=== PATIENT | male | born 1960 | race Caucasian/White ===

== ENCOUNTER 2021-09-01 13:33 | Observation (INO) | payer OTHER, SELFPAY ==
[2021-09-01] VITALS (7 sets, daily range): BP systolic 112–139; BP diastolic 84–99; PULSE 90–125; RESP 16–20; TEMP 36–36.6; O2SAT 95–99
--- NOTE | ~2021-09-01 | CT_ITS ---
EXAMINATION: CT cervical spine wo con EXAM DATE: 09/01/2021 13:57 INDICATION: fall, head inj TECHNIQUE: Spiral CT of the cervical spine was performed without contrast. Axial images were reviewe d. Coronal and sagittal reformatted images cervical spine were also reviewed. The dose-length produc t (DLP) for this examination was 500.68 mGy-cm. The exposure was tailored according to patient size (auto mA exposure control), and iterative reconstruction (ASIR) was used as additional dose reduction technique. There is no prior study for comparison. FINDINGS: Congenitally absent left C1 arch. There is no evidence of acute cervical fracture. The odo ntoid process is intact. Pre-dens space is normal. Prevertebral soft tissue is normal. There are n o soft tissue abnormalities identified. There is no disc space widening or traumatic vertebral body subluxation suspected. C5-C6 moderate disc disease, mild to moderate at other cervical levels. Overa ll mild to moderate cervical arthropathy. A detailed level by level evaluation of spondylosis can be added as addendum if requested. IMPRESSION: No acute cervical fracture. Cervical spondylosis. Reviewed, dictated and finalized at location G.
--- NOTE | ~2021-09-01 | CT_ITS ---
EXAMINATION: CT brain wo con DATE: 09/01/2021 13:56 INDICATION: Anticoagulated patient post fall with head injury. TECHNIQUE: Computed tomography (CT) of the head was performed without intravenous contrast. Sagittal and coronal reconstructions were performed. The mA was adjusted according to patient size. Iterative reconstruction technique was employed. The dose-length product was 681.00 mGy-cm. COMPARISON: None FINDINGS: Small occipital scalp contusion. No fracture. No acute intracranial hemorrhage, acute infarction or a bnormal extra axial fluid collection. Ventricles are normal and symmetric. No mass/mass effect. The o rbits, paranasal sinuses and mastoid air cells are normal. IMPRESSION: 1. No fracture or acute intracranial process. Reviewed, dictated and finalized at location A.
--- NOTE | ~2021-09-01 | CT_ITS ---
EXAMINATION: CT thoracic spine wo con EXAM DATE: 09/01/2021 15:24 INDICATION: Fall. TECHNIQUE: Spiral CT thoracic spine wo con was performed without contrast. Axial, coronal and sagit samir images were reviewed. The dose-length product (DLP) for this examination was 1280.01 mGy-cm. Th e exposure was tailored according to patient size (auto mA exposure control), and iterative reconstru ction (ASIR) was used as additional dose reduction technique. Correlation is made to cervical CT veronica ier same date. FINDINGS: There are no acute fractures identified. The vertebral bodies are aligned in the AP dimensi on. Mild thoracic disc disease and facet arthropathy. Mild to moderate mid thoracic neural foraminal stenosis from T7-8 through T9-10. The thoracic central canal is widely patent. Left basilar calcified granuloma. Small left adrenal gland adenoma or hyperplasia. IMPRESSION: No acute thoracic findings. Reviewed, dictated and finalized at location . IMPRESSION: No acute thoracic findings.
--- NOTE | ~2021-09-01 | XR_ITS ---
EXAMINATION: XR chest 1V portable EXAM DATE: 09/01/2021 14:14 INDICATION: Chest pain. TECHNIQUE: Portable AP frontal chest x-ray was obtained. There is no prior study for comparison. FINDINGS: Poor inspiration, low lung volume. Mild cardiomegaly and pulmonary vascular congestion. No confluent consolidation, pneumothorax or pleural effusion suspected. There are no osseous abnormaliti es identified. IMPRESSION: Cardiomegaly, vascular congestion. Reviewed, dictated and finalized at location G.
--- NOTE | 2021-09-01 13:41 | ECG_ITS ---
Measurements Intervals [place] Rate: 99 P: RI: 0 QRS: 16 QRSD: 97 T: 61 QT: 369 QTc: 475 Interpretive Statements ATRIAL FLUTTER/TACHYCARDIA NONSPECIFIC ST SEGMENT ABNORMALITY ABNORMAL ECG NO PREVIOUS ECG AVAILABLE FOR COMPARISON Electronically Signed On 09-01-2021 20:51:34 CDT by David Condon M.D.
[2021-09-01] MEDS: SODIUM CHLORIDE 0.9% IV 1,000 ML 999 ML IV CONT (14:15)
[2021-09-01] MEDS: PROMETHAZINE HCL 25 MG/ML AMPUL 12.5 MG IV PUSH (14:16)
[2021-09-01 14:33] LABS: Basophils Absolute Auto 0.1 K/mm3 (0.0-0.1); Basophils Percent Auto 0.8 % (0.2-1.2); Eosinophils Absolute Auto 0.4 K/mm3 (0-0.3); Eosinophils Percent Auto 4.2 % (0-4.4); Hematocrit 46.2 % (42.0-52.0); Hemoglobin 15.2 g/dL (14.0-18.0); Immature Granulocyte Absolute 0.02 K/mm3 (0.00-0.031); Immature Granulocyte Percent A 0.2 % (0-0.5); Lymphocytes Absolute Auto 3.66 K/mm3 (0.9-3.2); Lymphocytes Percent Auto 39.4 % (18.3-44.2); Mean Corpuscular HGB Conc 32.9 g/dl (32-36); Mean Corpuscular Hemoglobin 30.3 pg (26-34); Mean Corpuscular Volume 92.2 fl (80-100); Mean Platelet Volume 10.8 fl (7.4-10.4); Monocytes Absolute Auto 0.7 K/mm3 (0.1-0.6); Monocytes Percent Auto 7.4 % (2.6-8.5); Neutrophils Absolute Auto 4.5 K/mm3 (1.3-6.7); Platelet Count Result 270 k/mm3 (150-375); Red Blood Count 5.01 M/mm3 (4.6-6.20); White Blood Count 9.3 K/mm3 (4.5-10.0)
--- NOTE | 2021-09-01 14:40 | ED.SYNCOPE ---
HPI - Syncope General Chief Complaint: Fall Stated Complaint: afib, passed out, head inj Time Seen by Provider: 09/01/21 13:49 Source: patient Mode of arrival: ambulatory Limitations: no limitations History of Present Illness HPI narrative: Patient is a 60-year-old male complaining of a syncopal episode at home prior to arrival. Patient states that he was in a kneeling position, changing the construction supervisor the license plate of his car, stood up and felt lightheaded and passed out hitting his head on the ground. According to patient was only out for only 1 to 2 minutes . On arrival to the emergency room patient complaining of a headache, is confused, accompanied by nausea vomiting, 2 episodes. Patient is on Eliquis due to his atrial fib. Patient denies any speech or visual disturbance, focal weakness or numbness, chest pain, shortness of breath, abdominal pain, fever or chills. Related Data Home Medications Medication Instructions Recorded Confirmed Adult One Daily Multivitamin 1 tab-cap PO DAILY 09/01/21 09/01/21 amiodarone 200 mg PO DAILY 09/01/21 09/01/21 apixaban [Eliquis] 5 mg PO BID 09/01/21 09/01/21 azelastine 137 mcg INTRANASAL DAILY 09/01/21 09/01/21 diclofenac sodium 4 g TOPICAL BID 09/01/21 09/01/21 fluticasone propionate [Flonase] 1 spray INTRANASAL DAILY 09/01/21 09/01/21 ketotifen fumarate [Zaditor] 1 drp EACH EYE DAILY 09/01/21 09/01/21 lisinopril 2.5 mg PO DAILY 09/01/21 09/01/21 metoprolol succinate [Toprol XL] 50 mg PO BID 09/01/21 09/01/21 montelukast [Singulair] 10 mg PO DAILY 09/01/21 09/01/21 tamsulosin [Flomax] 0.4 mg PO BID 09/01/21 09/01/21 Allergies Allergy/AdvReac Type Severity Reaction Status Date / Time No Known Allergies Allergy Verified 09/01/21 14:18 Review of Systems Review of Systems: All systems reviewed & are unremarkable except as noted in HPI and below Constitutional: Constitutional: Denies body ache(s), Denies chills, Denies excessive sweating, Denies fatigue, Denies fever(s), Denies lethargy, Denies malaise, Denies weakness and Denies weight loss Eyes: Eyes: Denies blurry vision, Denies change in vision and Denies loss of vision ENT: Denies dizziness, Denies ear discharge, Denies headache(s), Denies lip swelling, Denies epistaxis, Denies nasal congestion, Denies neck pain, Denies throat swelling and Denies tongue swelling Cardiovascular: Cardiovascular: Denies chest pain, Denies chest pain at rest, Denies chest pain with activity, Denies diaphoresis, Denies rapid heart rate, Denies edema, Denies irregular heart rhythm, Denies lightheadedness, Denies palpitations, Denies dyspnea and Denies dyspnea on exertion Respiratory: Respiratory: Denies chest congestion, Denies cough, Denies hemoptysis, Denies dyspnea and Denies dyspnea on exertion Gastrointestinal: Gastrointestinal: Denies abdominal pain, Denies melena, Denies hematochezia, Denies diarrhea and Denies hematemesis Musculoskeletal: Musculoskeletal: Denies abnormal gait, Denies deformity, Denies joint swelling, Denies limited range of motion, Denies neck pain and Denies numbness Neurologic: Denies Abnormal speech present, Denies abnormal gait, Denies dizziness, Denies focal weakness, Denies loss of vision, Denies numbness, Denies Other visual disturbances, Denies Sensory deficit (Neuro) and Denies weakness Psychiatric: Psychiatric: Denies confusion, Denies depression, Denies auditory hallucinations, Denies homicidal ideation and Denies suicidal ideation Endocrine: Endocrine: Denies cold intolerance, Denies excessive sweating, Denies fatigue, Denies heat intolerance and Denies palpitations Hematologic/Lymphatic: Hematologic/Lymphatic: Denies easy bleeding and Denies easy bruising Allergic/Immunologic: Allergic/Immunologic: Denies lip swelling, Denies throat swelling and Denies tongue swelling PMFSH Comments Past medical history: Atrial fib, hypertension Family history: Hypertension Social history: Non-smoker no EtOH or drug use Exa
[2021-09-01 14:42] LABS: Alanine Aminotransferase 24 U/L (4-50); Albumin Level 4.1 g/dL (3.5-5.1); Alkaline Phosphatase 57 U/L (38-126); Anion Gap 6 mmol/L (8-16); Aspartate Amino Transferase 33 U/L (17-59); Bilirubin,Total 0.5 mg/dL (0.2-1.3); Blood Urea Nitrogen 29 mg/dL (9-20); Calcium 8.4 mg/dL (8.4-10.2); Carbon Dioxide 26 mmol/L (22-30); Chloride 103 mmol/L (98-107); Estimated CRCL calculation 58 ml/min; Estimated Glomerular Filt Rate 52; Glucose 127 mg/dL (65-110); INR 1.2; Lipase 180 U/L (23-300); Potassium 4.5 mmol/L (3.4-5.0); Prothrombin Time 14.6 Seconds (11.1-14.7); Sodium 135 mmol/L (137-145)
[2021-09-01 14:43] LABS: Partial Thromboplastin Time 26.9 SECONDS (22.3-36.8)
[2021-09-01 14:54] LABS: Troponin I < 0.012 ng/mL (0.000-0.034)
[2021-09-01] MEDS: LACTATED RINGERS 1,000 ML 125 ML IV CONT ×2 (17:03→21:12)
[2021-09-01 17:41] LABS: Troponin I < 0.012 ng/mL (0.000-0.034)
--- NOTE | 2021-09-01 18:00 | PM.IMHP ---
H&P: HPI History of Present Illness Date/Time: 09/01/21 18:00 Chief Complaint: Passed out, head injury. Narrative: This is a pleasant 60-year-old male with paroxysmal atrial fibrillation/flutter on chronic anticoagulation who presented to the emergency department via private vehicle from home for evaluation after he passed out and sustained a head injury. He was hospitalized in June 2021 at [facility] with new onset atrial fibrillation with rapid ventricular response and he had a cardiac ablation done 08/06/[address] Toth at the same facility. Since that time he has had intermittent episodes of lightheadedness and dizziness though it does not sound as though he has spoken with his chief school finance officer as he was waiting for an upcoming appointment on September 16. Not long prior to arrival he went outside to place a new registration intervention teacher his license plate. He estimates that he was in a squatting position for only handful of seconds before standing back up at which time he became lightheaded and he quickly fell backwards. Per patient report he was unconscious for a minute or less and when he came to he immediately phoned his to come outside and help him. According to the there was quite a bit of blood on the pavement coming from a laceration that he sustained on the back of his head from the fall. On arrival to the emergency department he was pale, diaphoretic, and complaining of dizziness with blood pressures in the 70s over 40s. Brain CT showed no acute findings and his blood pressure stabilized with IV fluid rehydration. Since arrival he has remained in a sinus tachycardia however has periods where he is in atrial flutter. A call was placed to his chief school finance officer and unfortunately there are no beds available at [facility] and thus the patient is being admitted to our hospital, awaiting transfer. Livestock Judging Coach on-call at [facility] recommended an amiodarone bolus and drip in the interim. Currently the patient is feeling okay and has no specific complaints. He specifically denies vertigo, chest pain, palpitations, shortness of breath, nausea, and vomiting. Review of Systems Review of Systems: Twelve systems were reviewed. He has had some sinus congestion but he thinks that is related to seasonal allergies as the trees are blooming. No sick contacts. No orthopnea, PND, or lower extremity edema. No history of thyroid disease. Except as documented, all other systems were reviewed and are negative. [facility], [facility] Past Medical History Medical History (Updated 09/01/21 @ 22:36 by Ashley Kern PA-C) Gastroesophageal reflux disease Hypertension Paroxysmal atrial fibrillation Paroxysmal atrial flutter Surgical History Surgical History (Updated 09/01/21 @ 22:32 by Ashley Kern PA-C) History of cardiac radiofrequency ablation (08/06/21) Per Dr. Toth at [facility] Family History Family History (Updated 09/01/21 @ 22:32 by Ashley Kern PA-C) Other Hypertension Social History Social History (Updated 09/01/21 @ 22:32 by Ashley Kern PA-C) Social History: Surrogate decision maker: Loly Figueroa, . Code status: Full code. Smoking status: Never smoker Second hand tobacco smoke exposure: No Alcohol intake: never Substance use: never Additional living arrangements comments: The patient lives with his in [place]. Additional occupation/education comments: Retired. Spiritual care concerns: No Meds Home Medications and Allergies Home Medications Medication Instructions Recorded Confirmed Type Adult One Daily Multivitamin 1 tab-cap PO DAILY 09/01/21 09/01/21 History amiodarone 200 mg PO DAILY 09/01/21 09/01/21 History apixaban [Eliquis] 5 mg PO BID 09/01/21 09/01/21 History azelastine 137 mcg INTRANASAL DAILY 09/01/21 09/01/21 History diclofenac sodium 4 g TOPICAL BID 09/01/21 09/01/21 History fluticasone propionate [Flonase] 1 spray INTRANASAL NILE
[2021-09-01 18:37] LABS: SARS-CoV-2 RNA PCR Negative
[2021-09-01 19:05] LABS: Troponin I < 0.012 ng/mL (0.000-0.034)
--- NOTE | 2021-09-01 19:26 | PC.NURSE ---
Assumed care of pt at this time, report received from Palma POSADAS. Pt alert and upright on stretcher , denies CP or dizziness. EDP Haney made aware of pts increased HR (125bpm).
[2021-09-01] MEDS: AMIODARONE 150 MG/D5W 100 ML 150 MG/100 ML BAG 600 MG IV CONT (19:55)
[2021-09-01 21:27] LABS: INR 1.2; Prothrombin Time 14.3 Seconds (11.1-14.7)
[2021-09-01 22:00] LABS: Basophils Percent Auto 0.3 % (0.2-1.2); Eosinophils Absolute Auto 0.1 K/mm3 (0-0.3); Eosinophils Percent Auto 1.2 % (0-4.4); Hemoglobin 15.6 g/dL (14.0-18.0); Immature Granulocyte Absolute 0.03 K/mm3 (0.00-0.031); Immature Granulocyte Percent A 0.3 % (0-0.5); Lymphocytes Absolute Auto 1.96 K/mm3 (0.9-3.2); Lymphocytes Percent Auto 18.9 % (18.3-44.2); Mean Corpuscular HGB Conc 32.5 g/dl (32-36); Mean Corpuscular Hemoglobin 29.7 pg (26-34); Mean Corpuscular Volume 91.4 fl (80-100); Mean Platelet Volume 10.6 fl (7.4-10.4); Monocytes Absolute Auto 0.8 K/mm3 (0.1-0.6); Monocytes Percent Auto 7.4 % (2.6-8.5); Neutrophils Absolute Auto 7.5 K/mm3 (1.3-6.7); Neutrophils Percent Auto 71.9 % (45.5-73.1); Platelet Count Result 283 k/mm3 (150-375); Red Blood Count 5.25 M/mm3 (4.6-6.20); White Blood Count 10.4 K/mm3 (4.5-10.0)
[2021-09-02] VITALS (16 sets, daily range): BP systolic 100–132; BP diastolic 80–110; PULSE 40–131; RESP 16–19; TEMP 35.7–36.1; O2SAT 95–100
--- NOTE | 2021-09-02 01:37 | ADMGEN ---
This patient, Thien Figueroa, was admitted to [facility] Surg Room 314-02 at 2030. Patient/family oriented to hospital policies and general routines including ID bracelet, bed and alarms, visiting hours, pain management, procedures, bathroom and other care routines, personal items, smoking policy, room service/diet, and visiting hours. Information on how to activate the Rapid Response Team has been discussed. Patient/Family are encouraged to report perceived risks to care and to ask questions if they do not understand what they are told or what they should do.
[2021-09-02] MEDS: MONTELUKAST SODIUM 10 MG TABLET PO (10:19)
[2021-09-02] MEDS: AMIODARONE HCL 200 MG TABLET PO (10:19)
[2021-09-02] MEDS: TAMSULOSIN HCL 0.4 MG CAPSULE PO ×2 (10:19→17:26)
[2021-09-02] MEDS: METOPROLOL SUCCINATE EXT REL 50 MG TABCR PO ×2 (10:19→21:50)
[2021-09-02] MEDS: MULTIVITAMINS THERAPEUTIC TAB (*BKC) 1 TABLET PO (10:19)
[2021-09-02] MEDS: lisinopriL 2.5 MG TABLET PO (10:20)
[2021-09-02] MEDS: FLUTICASONE PROPIONATE 0.05% NA SPR 16 GM BTL (*BKC) 1 SPRAY NASAL (10:20)
--- NOTE | 2021-09-02 13:06 | PM.IMPN ---
Progress Note: A&P Assessment and Plan (1) Syncope: Qualifiers: Syncope type: vasovagal syncope Qualified Code(s): R55 - Syncope and collapse Code(s): R55 - Syncope and collapse Status: Acute Assessment and Plan: - Awaiting bed at [facility]. Pt. prefers to see his own skatesman Dr. Toth. - Continue Telemetry - Hold Eliquis for now. - Will offer our Cardiology service to patient. - Continue neuro checks (2) Head injury: Qualifiers: Encounter type: initial encounter Qualified Code(s): S09.90XA - Unspecified injury of head, initial encounter Code(s): S09.90XA - Unspecified injury of head, initial encounter Status: Acute Assessment and Plan: - Concepcion, #[address] to posterior scalp without any drainage or any erythema, edema. - Monitor for signs of infection. (3) Sinus tachycardia: Code(s): R00.0 - Tachycardia, unspecified Status: Acute Assessment and Plan: - Continue telemetry. - Continue medications as ordered. - Will consult our Cardiology team here for recommendations. (4) Atrial flutter with rapid ventricular response: Code(s): I48.92 - Unspecified atrial flutter Status: Acute Assessment and Plan: - Continue telemetry. - Awaiting cardiology inp. - Continue Amiodarone. (5) Hypertension: Qualifiers: Hypertension type: unspecified Qualified Code(s): I10 - Essential (primary) hypertension Code(s): I10 - Essential (primary) hypertension Status: Acute Assessment and Plan: - Continue Home medications. 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 - Holding today pending possibility of procedure. Additional Plan 09/01/21 on admission: The patient presents today for evaluation after a syncopal episode as detailed in the HPI. He had fleeting lightheadedness prior to the loss of consciousness and he endorses having several similar episodes since his cardiac ablation on 08/06/2021. He has been in a sinus tachycardia with intermittent periods of atrial flutter/rapid ventricular response since arrival to the ED and in this setting I feel it is best for him to be transferred to [facility] for consultation with his rn placement. Unfortunately there are no beds available at that facility at this time. Their on-call information security specialist recommends starting the patient on an amiodarone drip while awaiting transfer. His blood pressures have stabilized after receiving a L bolus of IV fluids. IV fluids will be discontinued at this time due to cardiomegaly and evidence of pulmonary vascular congestion on chest x-ray. His scalp laceration has been repaired with concepcion and given his head trauma, his Eliquis will be held tonight and tomorrow while performing neurologic checks. Monitor orthostatic vital signs. Initiate fall precautions. Time Spent With Patient Time with patient: 15 - 25 minutes Subjective Date/time seen: 09/02/21 0915 This pt. was examined at the bedside after being admitted to the floor observation while waiting on a bed at [facility] where his skatesman is after he sustained a syncopal episode in which he hit the back of his head and he was found to be in and out of Atrial flutter here after having an ablation 08/06/21. Cardiology consult has been put off as the pt. wanted to be where his skatesman was, but they currently have no beds. He is on the wait list at [facility]. The pt. states he is not opposed to being seen by our Cardiology team if he has to. He currently has no complaints, and he denies any specific chest pain, palpitations or Dyspnea. He adheres to a 2000 mg sodium diet at home. I called [facility] and he is still on the wait list there, and they stated it may not be today before he gets a bed. Pt. will be given the optio
--- NOTE | 2021-09-02 15:56 | PM.CNCAR ---
Assessment and Plan Additional Plan 60-year-old man presenting after a self-limited syncopal episode while squatting and behind his automobile to change the license plate sticker. Sounds like he was probably orthostatic hypotensive at that time. The patient has by his description a tachycardia mediated cardiomyopathy and is being treated by physicians at another hospital. It seems like from the strategy he is described keeping him on amiodarone and will likely make another attempt at restoring sinus rhythm. Since the plan is to keep him here at [facility] until transfer I am going to recommend raising his dosage to 400 mg daily. This may provide somewhat better rate control as well. Since cardioversion and electrophysiology ablation did not restore sinus rhythm at [facility] there is no reason to attempt a cardioversion at our hospital. We will follow him with you while he is here until such time that he is transferred to [facility]. David Condon MD [facility] History of Present Illness History of Present Illness Consult date/time: 09/02/21 15:56 Consult reason: Other (Atrial flutter, cardiomyopathy) Reason For Visit: Syncope/head injury Narrative: This is a 60-year-old man I am seeing at the request of the hospitalist because of atrial arrhythmias and syncopal episode that occurred prior to coming into the hospital here at [place]. He has not been hospitalized or treated for anything here at this hospital in the past. Apparently has a history of atrial arrhythmias and is being treated by physicians at [facility] down in [place]. The patient says that his physicians are down at least a few years he has been having complaints of occasional palpitations which were not felt to be too serious by his physicians. He states that in June of this year he presented to the hospital where with significant dyspnea with modest activity. At that time he says he was 1st found to be in atrial fibrillation describes having been found to have significant weakening of his heart. He states that the manipulative therapy specialist down there performed a variety of evaluations including a left heart catheterization which did not show any evidence of coronary disease. He was seen by the manipulative therapy specialist and the electrophysiology service. He was treated medically and electrically cardioverted which did not restore normal rhythm. He states he underwent an ablation procedure in the early part of this month and the procedure also was not successful in normalizing his cardiac rhythm. He is being maintained amiodarone at a dosage of 200 mg daily as well as metoprolol on low doses of lisinopril. He systemically anticoagulated with apixaban. The patient has appointment scheduled for follow-up with the surveillance technician in the week of September. I do not have any of those records for specific review at the time of seeing him today. He does not offer any other complaints. He has not had any other episodes of syncope. 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 He fell striking the back of his head on the ground he did sustain a scalp laceration was bleeding significantly. His came out and found to in this condition brought to this hospital's emergency room. His scalp laceration was repaired in the ED. His anticoagulation has been placed on hold. His CT scan did not show any evidence of intracranial hemorrhage. Following the blow to his head in the emergency room apparently he was confused for a period of time then his mental status became clear. He is perfectly comfortable in appearance sitting in his chair by the side of his bed. The notes in the chart indicate that they are trying to transfer the patient [facility] for further evaluation/care by his physicians down there but they no
[2021-09-03] VITALS: PULSE 113
[2021-09-03 04:00] VITALS: PULSE 92
[2021-09-03 05:46] VITALS: BP 113/82; PULSE 48; RESP 16; TEMP 36.1
[2021-09-03 06:19] LABS: Basophils Absolute Auto 0.1 K/mm3 (0.0-0.1); Basophils Percent Auto 0.6 % (0.2-1.2); Eosinophils Absolute Auto 0.3 K/mm3 (0-0.3); Hematocrit 46.5 % (42.0-52.0); Hemoglobin 15.4 g/dL (14.0-18.0); Immature Granulocyte Absolute 0.03 K/mm3 (0.00-0.031); Immature Granulocyte Percent A 0.3 % (0-0.5); Lymphocytes Absolute Auto 2.67 K/mm3 (0.9-3.2); Lymphocytes Percent Auto 30.8 % (18.3-44.2); Mean Corpuscular HGB Conc 33.1 g/dl (32-36); Mean Corpuscular Hemoglobin 30.3 pg (26-34); Mean Corpuscular Volume 91.4 fl (80-100); Mean Platelet Volume 10.7 fl (7.4-10.4); Monocytes Absolute Auto 0.6 K/mm3 (0.1-0.6); Monocytes Percent Auto 7.3 % (2.6-8.5); Platelet Count Result 257 k/mm3 (150-375); Red Blood Count 5.09 M/mm3 (4.6-6.20); White Blood Count 8.7 K/mm3 (4.5-10.0)
[2021-09-03 06:43] LABS: Alanine Aminotransferase 23 U/L (4-50); Alkaline Phosphatase 52 U/L (38-126); Anion Gap 5 mmol/L (8-16); Aspartate Amino Transferase 29 U/L (17-59); Bilirubin,Total 1.1 mg/dL (0.2-1.3); Blood Urea Nitrogen 20 mg/dL (9-20); Calcium 8.6 mg/dL (8.4-10.2); Carbon Dioxide 29 mmol/L (22-30); Chloride 102 mmol/L (98-107); Estimated CRCL calculation 75 ml/min; Estimated Glomerular Filt Rate > 60; Glucose 108 mg/dL (65-110); Magnesium 1.8 mg/dL (1.6-2.3); Potassium 4.4 mmol/L (3.4-5.0); Sodium 136 mmol/L (137-145)
[2021-09-03 08:00] VITALS: PULSE 90
[2021-09-03 08:31] VITALS: PULSE 100
[2021-09-03] MEDS: METOPROLOL SUCCINATE EXT REL 50 MG TABCR PO (08:31)
[2021-09-03] MEDS: lisinopriL 2.5 MG TABLET PO (08:31)
[2021-09-03] MEDS: TAMSULOSIN HCL 0.4 MG CAPSULE PO (08:31)
[2021-09-03] MEDS: AZELASTINE HCL NASAL 0.1% 137 MCG/SPR 30 ML BTL 1 SPRAY NASAL (08:32)
[2021-09-03] MEDS: FLUTICASONE PROPIONATE 0.05% NA SPR 16 GM BTL (*BKC) 1 SPRAY NASAL (08:32)
[2021-09-03 08:33] VITALS: PULSE 100
[2021-09-03] MEDS: MULTIVITAMINS THERAPEUTIC TAB (*BKC) 1 TABLET PO (08:33)
[2021-09-03] MEDS: AMIODARONE HCL 200 MG TABLET 400 MG PO (08:33)
[2021-09-03] MEDS: MONTELUKAST SODIUM 10 MG TABLET PO (08:33)
--- NOTE | 2021-09-03 08:37 | PM.PNCARD ---
Progress Note: A&P Assessment and Plan (1) Atrial flutter with rapid ventricular response: Code(s): I48.92 - Unspecified atrial flutter Status: Acute Assessment and Plan: This is not a new problem he follows with Dr. Toth at [facility]. Hx of failed cardioversion x2 and failed afib ablation. His amiodarone was increased to 400 mg daily yesterday. This has provided better rate control for him. He is stable for discharge from cardiac perspective today. He does have scheduled follow-up with his expansion envelope maker hand on September 16. Will keep him on this increased dose of amiodarone at discharge with further adjustments to be made by his expansion envelope maker hand since he artery has short interval follow-up scheduled. Restart a/c upon discharge. (2) Syncope: Qualifiers: Syncope type: vasovagal syncope Qualified Code(s): R55 - Syncope and collapse Code(s): R55 - Syncope and collapse Status: Acute Assessment and Plan: Probably related to orthostasis. Reviewed that he should move slowly when transitioning positions and encouraged him to stay hydrated. Subjective Date/time seen: 09/03/21 08:37 Cardiology follow up for atrial flutter, syncope Patient is feeling well this morning. He has ambulated around his room and has not experienced any dizziness or further occurrences of syncope. His heart rate is better controlled on increased dose of amiodarone - mostly in the 80's -90's. He denies any palpitations, chest pain, or shortness of breath. Review of Systems Constitutional: Constitutional: Reports fatigue Eyes: Eyes: Reports no additional eye complaints ENT: Reports system reviewed and no additional complaints, except as documented Cardiovascular: Cardiovascular: Reports as per HPI and Reports dyspnea on exertion Respiratory: Respiratory: Reports dyspnea on exertion Gastrointestinal: Gastrointestinal: Reports no additional gastrointestinal complaints Musculoskeletal: Musculoskeletal: Reports no additional musculoskeletal complaints Integumentary/Breasts: Skin/Breast: Reports system reviewed and no additional complaints, except as docu Neurologic: Reports as per HPI Endocrine: Endocrine: Reports no additional endocrine complaints and Reports fatigue Hematologic/Lymphatic: Hematologic/Lymphatic: Reports no additional hematologic/lymphatic complaints Allergic/Immunologic: Allergic/Immunologic: Reports no additional allergic/immunologic complaints Exam Const: General: comfortable and no acute distress Other: Pleasant white male appearing his stated age he is comfortable cooperative in no distress of any sort. [facility]: Mouth: Yes moist mucous membranes Eyes: Sclera: sclerae normal Pupils: Equal, round and reactive pupils present Neck: Neck: supple and no JVD Resp: Effort & Inspection: normal respiratory effort Auscultation: clear to auscultation bilaterally Cardio: Rate: regular rate Rhythm: abnormal rhythm irregularly irregular GI: Auscultation: normal bowel sounds Skin: General skin exam: normal color Neuro: Cranial nerves: Yes Equal, round and reactive pupils present Cognition (Neuro): normal cognition Extrem: General: normal to inspection Objective Data Vital Signs Vital Signs: Vital Signs - 24 hr 09/02/21 10:09 09/02/21 10:19 09/02/21 12:00 Temperature Pulse Rate 125 H 125 H 131 H Respiratory Rate Blood Pressure 132/100 H Pulse Oximetry 09/02/21 14:00 09/02/21 16:00 09/02/21 20:00 Temperature 35.7 C L 35.7 C L Pulse Rate 83 127 H 113 H Respiratory Rate 19 16 Blood Pressure 100/82 116/93 H Pulse Oximetry 98 100 09/02/21 20:58 09/02/21 21:40 09/02/21 21:41 Temperature Pulse Rate 40 L 112 H Respiratory Rate Blood Pressure 130/110 H 104/80 Pulse Oximetry 100 95 100 09/02/21 22:00 09/02/21 23:40 09/03/21 00:00 Temperature 36.1 C L Pulse Rate 64 113 H Respiratory Rate 16 Blood Pressure 116/93 H Pulse Ox
--- NOTE | 2021-09-03 10:21 | PM.DS ---
DS: Admitting Diagnosis Discharge Date 09/03/2021 Admitting Diagnosis 1) Syncope and Collapse 2) Head Injury 3) Sinus Tachycardia 4) Atrial Flutter with Rapid Ventricular Response 5) Hypertension 6) Chronic Anticoagulation DS: Discharge Diagnosis Discharge Diagnosis (1) Syncope: Qualifiers: Syncope type: vasovagal syncope Qualified Code(s): R55 - Syncope and collapse Code(s): R55 - Syncope and collapse Status: Acute Assessment and Plan: - Awaiting bed at [facility]. Pt. prefers to see his own waiter/waitress head Dr. Toth. - Continue Telemetry - Hold Eliquis for now. - Will offer our Cardiology service to patient. - Continue neuro checks - Pt has remained stable and his telemetry continues to show Atrial Fibrillation. He is not orthostatic and he has no complaints of CP, Palpitations. - Cardiology has consulted here and has recommended that his Amiodarone be increased to 400 mg po daily. I have spoken with Dr. Toth, the pt's Cabin Service Agent at [facility] and he agrees with this plan of care and states pt. can be discharged today and he will have his MORTEZA call him for a sooner appointment than 09/16/21. Pt. is hemodynamically stable, so he may be discharged today. (2) Head injury: Qualifiers: Encounter type: initial encounter Qualified Code(s): S09.90XA - Unspecified injury of head, initial encounter Code(s): S09.90XA - Unspecified injury of head, initial encounter Status: Acute Assessment and Plan: - Mayank, #[address] to posterior scalp without any drainage or any erythema, edema. - Monitor for signs of infection. - Neuro checks normal. - No concussive symptoms to report. - Wallback to be removed in one week. (3) Sinus tachycardia: Code(s): R00.0 - Tachycardia, unspecified Status: Acute Assessment and Plan: - Continue telemetry. - Continue medications as ordered. - Will consult our Cardiology team here for recommendations. (4) Atrial flutter with rapid ventricular response: Code(s): I48.92 - Unspecified atrial flutter Status: Acute Assessment and Plan: - Continue telemetry. - Awaiting cardiology inpul. - Continue Amiodarone at increased dose of 400 mg po daily. Cardiology has consulted here and has recommended that his Amiodarone be increased to 400 mg po daily. I have spoken with Dr. Toth, the pt's Cabin Service Agent at [facility] and he agrees with this plan of care and states pt. can be discharged today and he will have his MORTEZA call him for a sooner appointment than 09/16/21. Pt. is hemodynamically stable, so he may be discharged today. (5) Hypertension: Qualifiers: Hypertension type: unspecified Qualified Code(s): I10 - Essential (primary) hypertension Code(s): I10 - Essential (primary) hypertension Status: Acute Assessment and Plan: - Continue home medications. (6) Chronic anticoagulation: Code(s): Z79.01 - [facility] (current) use of anticoagulants Status: Acute Assessment and Plan: - Continue home medications of Eliquis. DS: Summary Hospital Course Reason for hospitalization: Syncope and Collapse Hospital Course: This very pleasant 60 year old male patient presented to the ER on 09/01/21 after sustaining a fall at home. 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 He had a brief LOC. He was brought to the ER as he is on chronic anticoagulation and CT of his head and cervical spine were negative. He was found to be in Atrial Flutter with RVR. Initially he was started on an Amiodarone drip and then later transitioned to po Amiodarone at 200 mg daily, his head wound was repaired with 3 sutures and he was admitted to the telemetry floor for further monitoring. Arrangements were made to transfer this pt to [facility]
== END 2021-09-03 12:00 | disposition home or self-care (01) ==
LOC: ANHED 16:42 → ANH3MEDSUR 19:49
PROVIDERS: Admitting Provider Internal Medicine; Emergency Provider Emergency Medicine; PCP Family Medicine; Visit Provider Nurse Practitioner Adult Health
DX: S09.90XA Unspecified injury of head, initial encounter (principal); R55 Syncope and collapse; W19.XXXA Unspecified fall, initial encounter; I10 Essential (primary) hypertension; I48.91 Unspecified atrial fibrillation; I48.92 Unspecified atrial flutter; K21.9 Gastro-esophageal reflux disease without esophagitis; R00.0 Tachycardia, unspecified; Z20.822 Contact with and (suspected) exposure to COVID-19; Z79.01 Long term (current) use of anticoagulants; Z28.21 Immunization not carried out because of patient refusal
CPT/HCPCS: 12002; 36415; 70450; 71045; 72125; 72128; 80053; 83690; 83735; 84484; 85025; 85610; 85730; 93005; 96374; 99285; A9270; C9803; G0378; J0282; J2550; J7030; J7120; U0003; U0005